=== PATIENT | female | born 1950 | race Caucasian/White ===

== ENCOUNTER 2022-01-24 13:20 | Inpatient (IN) ==
[2022-01-24] MEDS ORDERED: Ondansetron 4 MG/2 ML VIAL IVP PRN (13:37)
[2022-01-24] MEDS ORDERED: Naloxone 0.4 MG/ML INJ IVP PRN (13:37)
[2022-01-24] MEDS ORDERED: Acetaminophen 325 MG TABLET PO PRN (13:37)
[2022-01-24] MEDS ORDERED: Famotidine 20 MG TABLET PO PRN (16:35)
[2022-01-24] MEDS: 0.9 % Sodium Chloride 1,000 ML IVC SCH (16:57)
[2022-01-24] MEDS: *HR* Heparin 5,000 UNIT/ML VIAL SQ SCH (17:00)
[2022-01-24] MEDS: QUEtiapine Fumarate 25 MG TABLET PO SCH (20:45)
[2022-01-24] MEDS: PAXLOVID PO SCH (20:45)
[2022-01-25] MEDS: *HR* Heparin 5,000 UNIT/ML VIAL SQ SCH ×2 (06:03→17:55)
[2022-01-25] MEDS: 0.9 % Sodium Chloride 1,000 ML IVC SCH (06:23)
[2022-01-25 07:57] LABS: Basophils % 0.7 %; Eosinophils # 0.2 K/mcL (0.0-0.6); Eosinophils % 2.6 %; Hematocrit 36.1 % (35.3-44.9); Hemoglobin 11.4 g/dL (11.5-15.4); Immature Granulocytes % 0.3 % (0-4); Lymphocytes # 1.7 K/mcL (0.6-4.6); Lymphocytes % 29.4 %; Mean Corpuscular HGB Conc 31.6 g/dL (31.6-35.5); Mean Corpuscular Hemoglobin 29.2 pg (28.0-33.3); Mean Corpuscular Volume 92.6 fL (83.0-100.0); Mean Platelet Volume 9.8 fL (9.4-12.4); Monocytes # 1.1 K/mcL (0.0-1.3); Neutrophils # 2.9 K/mcL (1.6-8.9); Platelet Count 195 K/mcL (140-400); White Blood Count 5.9 K/mcL (4.3-11.1)
[2022-01-25 08:30] LABS: BUN/Creatinine Ratio 15 (6-26); Blood Urea Nitrogen 14 mg/dL (8-23); Calcium 8.5 mg/dL (8.6-10.3); Carbon Dioxide 27 mEq/L (23-29); Chloride 106 mEq/L (98-107); Glucose 67 mg/dL (70-105); Magnesium 1.8 mg/dL (1.6-2.6); Osmolality,Calculated 291 (280-300); Potassium 3.6 mEq/L (3.5-5.1); Sodium 141 mEq/L (136-145); eGFR For African Americans > 60 (> 60); eGFR For Non-African Americans 57 (> 60)
[2022-01-25] MEDS: PAXLOVID PO SCH ×2 (09:19→21:31)
[2022-01-25] MEDS: Aspirin Enteric Coated 81 MG Tablet PO SCH (09:19)
[2022-01-25] MEDS: ALPRAZolam 0.5 MG TABLET PO PRN ×2 (14:54→23:36)
[2022-01-25] MEDS: QUEtiapine Fumarate 25 MG TABLET PO SCH (21:30)
[2022-01-26] MEDS: *HR* Heparin 5,000 UNIT/ML VIAL SQ SCH ×2 (06:56→17:42)
[2022-01-26] MEDS: Aspirin Enteric Coated 81 MG Tablet PO SCH (09:47)
[2022-01-26] MEDS: PAXLOVID PO SCH ×2 (09:48→20:21)
[2022-01-26] MEDS: Nitrofurantoin (BID) 100 MG CAPSULE PO SCH (17:42)
[2022-01-26] MEDS: QUEtiapine Fumarate 25 MG TABLET PO SCH (20:20)
[2022-01-26] MEDS: ALPRAZolam 0.5 MG TABLET PO PRN (22:52)
[2022-01-27] MEDS: Nitrofurantoin (BID) 100 MG CAPSULE PO SCH ×2 (09:04→17:24)
[2022-01-27] MEDS: Aspirin Enteric Coated 81 MG Tablet PO SCH (09:05)
[2022-01-27] MEDS: PAXLOVID PO SCH ×2 (09:05→20:26)
[2022-01-27] MEDS: *HR* Heparin 5,000 UNIT/ML VIAL SQ SCH ×2 (09:05→17:24)
[2022-01-27 11:14] LABS: BUN/Creatinine Ratio 19 (6-26); Blood Urea Nitrogen 19 mg/dL (8-23); Calcium 8.9 mg/dL (8.6-10.3); Carbon Dioxide 32 mEq/L (23-29); Chloride 100 mEq/L (98-107); Glucose 84 mg/dL (70-105); Magnesium 1.8 mg/dL (1.6-2.6); Osmolality,Calculated 289 (280-300); Potassium 3.3 mEq/L (3.5-5.1); Sodium 139 mEq/L (136-145); eGFR For African Americans > 60 (> 60); eGFR For Non-African Americans 54 (> 60)
[2022-01-27 11:33] LABS: Basophils % 0.5 %; Eosinophils # 0.3 K/mcL (0.0-0.6); Eosinophils % 5.7 %; Hematocrit 34.3 % (35.3-44.9); Hemoglobin 10.9 g/dL (11.5-15.4); Immature Granulocytes % 0.2 % (0-4); Lymphocytes # 1.7 K/mcL (0.6-4.6); Lymphocytes % 39.9 %; Mean Corpuscular HGB Conc 31.8 g/dL (31.6-35.5); Mean Corpuscular Hemoglobin 29.5 pg (28.0-33.3); Mean Platelet Volume 9.9 fL (9.4-12.4); Monocytes # 0.4 K/mcL (0.0-1.3); Monocytes % 10.1 %; Neutrophils # 1.9 K/mcL (1.6-8.9); Platelet Count 217 K/mcL (140-400); Red Blood Count 3.69 M/mcL (3.82-4.97); Red Cell Distribution Width 12.7 % (11.5-14.5); Segmented Neutrophils % 43.6 %; White Blood Count 4.4 K/mcL (4.3-11.1)
[2022-01-27] MEDS: QUEtiapine Fumarate 25 MG TABLET PO SCH (20:26)
[2022-01-27] MEDS: ALPRAZolam 0.5 MG TABLET PO PRN (20:26)
[2022-01-28] MEDS: *HR* Heparin 5,000 UNIT/ML VIAL SQ SCH ×2 (09:07→17:36)
[2022-01-28] MEDS: Aspirin Enteric Coated 81 MG Tablet PO SCH (09:07)
[2022-01-28] MEDS: ALPRAZolam 0.5 MG TABLET PO PRN ×2 (09:07→20:48)
[2022-01-28] MEDS: Nitrofurantoin (BID) 100 MG CAPSULE PO SCH ×2 (09:08→17:36)
[2022-01-28] MEDS: PAXLOVID PO SCH ×2 (09:09→20:49)
[2022-01-28 10:18] LABS: Basophils % 0.2 %; Eosinophils # 0.3 K/mcL (0.0-0.6); Eosinophils % 5.8 %; Hematocrit 33.2 % (35.3-44.9); Hemoglobin 10.6 g/dL (11.5-15.4); Immature Granulocytes % 0.4 % (0-4); Lymphocytes # 1.8 K/mcL (0.6-4.6); Lymphocytes % 40.4 %; Mean Corpuscular HGB Conc 31.9 g/dL (31.6-35.5); Mean Corpuscular Hemoglobin 29.5 pg (28.0-33.3); Mean Corpuscular Volume 92.5 fL (83.0-100.0); Mean Platelet Volume 9.5 fL (9.4-12.4); Monocytes # 0.5 K/mcL (0.0-1.3); Monocytes % 10.6 %; Neutrophils # 1.9 K/mcL (1.6-8.9); Platelet Count 183 K/mcL (140-400); Red Blood Count 3.59 M/mcL (3.82-4.97); Red Cell Distribution Width 12.6 % (11.5-14.5); Segmented Neutrophils % 42.6 %; White Blood Count 4.5 K/mcL (4.3-11.1)
[2022-01-28 10:55] LABS: BUN/Creatinine Ratio 20 (6-26); Blood Urea Nitrogen 21 mg/dL (8-23); Calcium 8.8 mg/dL (8.6-10.3); Carbon Dioxide 34 mEq/L (23-29); Chloride 99 mEq/L (98-107); Glucose 127 mg/dL (70-105); Magnesium 1.9 mg/dL (1.6-2.6); Osmolality,Calculated 291 (280-300); Potassium 3.6 mEq/L (3.5-5.1); Sodium 138 mEq/L (136-145); eGFR For African Americans > 60 (> 60); eGFR For Non-African Americans 52 (> 60)
[2022-01-28] MEDS: QUEtiapine Fumarate 25 MG TABLET PO SCH (20:48)
[2022-01-29] MEDS: *HR* Heparin 5,000 UNIT/ML VIAL SQ SCH ×2 (05:32→16:49)
[2022-01-29 07:06] VITALS: RESP 16
[2022-01-29 07:49] LABS: Basophils % 0.4 %; Eosinophils # 0.3 K/mcL (0.0-0.6); Eosinophils % 5.3 %; Hematocrit 33.3 % (35.3-44.9); Hemoglobin 10.7 g/dL (11.5-15.4); Immature Granulocytes % 0.2 % (0-4); Lymphocytes # 1.9 K/mcL (0.6-4.6); Lymphocytes % 40.9 %; Mean Corpuscular HGB Conc 32.1 g/dL (31.6-35.5); Mean Corpuscular Hemoglobin 29.7 pg (28.0-33.3); Mean Corpuscular Volume 92.5 fL (83.0-100.0); Mean Platelet Volume 9.6 fL (9.4-12.4); Monocytes # 0.5 K/mcL (0.0-1.3); Monocytes % 11.5 %; Platelet Count 195 K/mcL (140-400); Red Cell Distribution Width 12.7 % (11.5-14.5); Segmented Neutrophils % 41.7 %; White Blood Count 4.7 K/mcL (4.3-11.1)
[2022-01-29 08:14] LABS: BUN/Creatinine Ratio 25 (6-26); Blood Urea Nitrogen 21 mg/dL (8-23); Calcium 9.2 mg/dL (8.6-10.3); Carbon Dioxide 31 mEq/L (23-29); Chloride 101 mEq/L (98-107); Glucose 84 mg/dL (70-105); Osmolality,Calculated 288 (280-300); Potassium 4.2 mEq/L (3.5-5.1); Sodium 138 mEq/L (136-145); eGFR For African Americans > 60 (> 60); eGFR For Non-African Americans > 60 (> 60)
[2022-01-29] MEDS: Aspirin Enteric Coated 81 MG Tablet PO SCH (09:43)
[2022-01-29] MEDS: Nitrofurantoin (BID) 100 MG CAPSULE PO SCH ×2 (09:43→16:47)
[2022-01-29] MEDS ORDERED: Thiamine (B-1) 100 MG, Folic Acid 1 MG, MVI, adult with vitamin K 10 ML in 0.9 % Sodi... IVPB SCH (18:00)
[2022-01-29] MEDS: QUEtiapine Fumarate 25 MG TABLET PO SCH (20:20)
[2022-01-30] MEDS: *HR* Heparin 5,000 UNIT/ML VIAL SQ SCH (06:49)
[2022-01-30 06:56] VITALS: BP 111/66; PULSE 73; TEMP 98; O2SAT 95
[2022-01-30 07:02] LABS: Basophils % 0.5 %; Eosinophils # 0.3 K/mcL (0.0-0.6); Eosinophils % 5.6 %; Hematocrit 33.2 % (35.3-44.9); Hemoglobin 10.6 g/dL (11.5-15.4); Immature Granulocytes % 0.4 % (0-4); Lymphocytes # 2.2 K/mcL (0.6-4.6); Lymphocytes % 40.4 %; Mean Corpuscular HGB Conc 31.9 g/dL (31.6-35.5); Mean Corpuscular Hemoglobin 29.4 pg (28.0-33.3); Mean Platelet Volume 9.7 fL (9.4-12.4); Monocytes # 0.5 K/mcL (0.0-1.3); Monocytes % 8.5 %; Neutrophils # 2.5 K/mcL (1.6-8.9); Platelet Count 208 K/mcL (140-400); Red Blood Count 3.61 M/mcL (3.82-4.97); Red Cell Distribution Width 12.6 % (11.5-14.5); Segmented Neutrophils % 44.6 %; White Blood Count 5.5 K/mcL (4.3-11.1)
[2022-01-30 07:20] LABS: BUN/Creatinine Ratio 18 (6-26); Blood Urea Nitrogen 14 mg/dL (8-23); Calcium 9.2 mg/dL (8.6-10.3); Carbon Dioxide 30 mEq/L (23-29); Chloride 104 mEq/L (98-107); Glucose 83 mg/dL (70-105); Osmolality,Calculated 290 (280-300); Sodium 140 mEq/L (136-145); eGFR For African Americans > 60 (> 60); eGFR For Non-African Americans > 60 (> 60)
[2022-01-30] MEDS: Aspirin Enteric Coated 81 MG Tablet PO SCH (09:50)
[2022-01-30] MEDS: Nitrofurantoin (BID) 100 MG CAPSULE PO SCH (09:50)
== END 2022-01-30 16:32 | disposition other institution (70) | DRG 689 ==
LOC: INPPIK
PROVIDERS: ADMIT Internal Medicine; ATTEND Internal Medicine

== ENCOUNTER 2022-01-30 10:04 | Inpatient (IN) ==
[2022-01-30] MEDS ORDERED: Acetaminophen 325 MG TABLET PO PRN (15:28)
[2022-01-30] MEDS ORDERED: NON-FORMULARY MEDICATION 1 EACH EACH (Ondansetron Hcl [Ondansetron Hcl] 4 MG Tablet) PO PRN (15:28)
[2022-01-30] MEDS ORDERED: Haloperidol Lactate 5 MG/ML VIAL IM PRN (15:32)
[2022-01-30] MEDS ORDERED: Famotidine 20 MG TABLET PO PRN (16:46)
[2022-01-30] MEDS: *HR* Heparin 5,000 UNIT/ML VIAL SQ SCH (18:44)
[2022-01-30] MEDS ORDERED: QUEtiapine Fumarate 25 MG TABLET PO SCH (20:00)
[2022-01-30] MEDS ORDERED: *HR* LORazepam 2 MG/ML VIAL IVP ONE (21:41)
[2022-01-31] MEDS: *HR* Heparin 5,000 UNIT/ML VIAL SQ SCH ×2 (05:39→17:33)
[2022-01-31 08:43] LABS: Basophils % 0.5 %; Eosinophils # 0.2 K/mcL (0.0-0.6); Eosinophils % 2.2 %; Hematocrit 36.7 % (35.3-44.9); Hemoglobin 11.3 g/dL (11.5-15.4); Immature Granulocytes % 0.8 % (0-4); Lymphocytes # 1.4 K/mcL (0.6-4.6); Lymphocytes % 17.8 %; Mean Corpuscular HGB Conc 30.8 g/dL (31.6-35.5); Mean Corpuscular Hemoglobin 29.2 pg (28.0-33.3); Mean Corpuscular Volume 94.8 fL (83.0-100.0); Mean Platelet Volume 10.1 fL (9.4-12.4); Neutrophils # 5.1 K/mcL (1.6-8.9); Platelet Count 215 K/mcL (140-400); Red Blood Count 3.87 M/mcL (3.82-4.97); Red Cell Distribution Width 12.5 % (11.5-14.5); Segmented Neutrophils % 65.7 %; White Blood Count 7.8 K/mcL (4.3-11.1)
[2022-01-31 09:10] LABS: BUN/Creatinine Ratio 14 (6-26); Blood Urea Nitrogen 15 mg/dL (8-23); Calcium 9.5 mg/dL (8.6-10.3); Carbon Dioxide 28 mEq/L (23-29); Chloride 101 mEq/L (98-107); Glucose 83 mg/dL (70-105); Osmolality,Calculated 286 (280-300); Potassium 4.3 mEq/L (3.5-5.1); Sodium 138 mEq/L (136-145); eGFR For African Americans > 60 (> 60); eGFR For Non-African Americans 50 (> 60)
[2022-01-31] MEDS: Aspirin Enteric Coated 81 MG Tablet PO SCH (10:55)
[2022-01-31] MEDS ORDERED: Ziprasidone 20 MG CAPSULE PO ONE (17:16)
[2022-01-31] MEDS ORDERED: QUEtiapine Fumarate 25 MG TABLET PO SCH (21:00)
[2022-02-01] MEDS: *HR* Heparin 5,000 UNIT/ML VIAL SQ SCH ×2 (06:16→10:44)
[2022-02-01] MEDS: Aspirin Enteric Coated 81 MG Tablet PO SCH (10:44)
[2022-02-01] MEDS ORDERED: Ziprasidone 20 MG CAPSULE PO ONE (19:00)
[2022-02-02] MEDS: *HR* Heparin 5,000 UNIT/ML VIAL SQ SCH ×2 (10:00→18:23)
[2022-02-02] MEDS: Aspirin Enteric Coated 81 MG Tablet PO SCH (10:00)
[2022-02-02] MEDS ORDERED: Ziprasidone 20 MG CAPSULE PO ONE (19:00)
[2022-02-03] MEDS ORDERED: QUEtiapine Fumarate 25 MG TABLET PO SCH ×2 (00:17→21:00)
[2022-02-03] MEDS: *HR* Heparin 5,000 UNIT/ML VIAL SQ SCH ×2 (05:05→17:25)
[2022-02-03] MEDS: Aspirin Enteric Coated 81 MG Tablet PO SCH (10:25)
[2022-02-03] MEDS: ALPRAZolam 0.5 MG TABLET PO PRN (20:15)
[2022-02-04] MEDS: Aspirin Enteric Coated 81 MG Tablet PO SCH (08:05)
[2022-02-04] MEDS: ALPRAZolam 0.5 MG TABLET PO PRN ×2 (08:05→18:03)
[2022-02-04] MEDS: *HR* Heparin 5,000 UNIT/ML VIAL SQ SCH ×2 (08:06→17:53)
[2022-02-04] MEDS ORDERED: QUEtiapine Fumarate 25 MG TABLET PO SCH (09:00)
[2022-02-04 20:04] VITALS: BP 125/79; PULSE 87; RESP 16; TEMP 98.6; O2SAT 94
== END 2022-02-04 20:07 | DRG 177 ==
LOC: INPPIK 16:27
PROVIDERS: ADMIT Internal Medicine; ATTEND Internal Medicine